=== PATIENT | male | born 1980 | race Two or more races ===

== ENCOUNTER 2016-10-27 22:31 | Emergency (ER) | payer OTHER ==
[~2016-10-27] VITALS: Ht 162.6 cm; Wt 104.3 kg
--- NOTE | ~2016-10-27 | CR141 ---
[facility] A Service [facility] RADIOLOGY TEXT RESULTS PATIENT: PRIYA CHINCHILLA LOCATION: [facility] : [birth year] UNIT #: [id number] AGE: [address]: Prerna Stevenson APRN SEX: M ORDER DR: [id number] [address] [id number] MR#: [id number] #: [id number] NAME: PRIYA CHINCHILLA : 1980 SEX: M STUDY DATE/TIME: 10/28/2016 2:32 UNIT: G[facility] ROOM: STUDY DESCRIPTION: CR Hand Min 3 Views Lt Attending Physician: Prerna Stevenson A.P.R.N. Ordering Physician: Prerna Stevenson A.P.R.N. MEDICAL IMAGING REPORT This report is preliminary unless electronic signature is present EXAM Left hand series INDICATIONS Left hand pain and swelling after an injury 5 days ago. TECHNIQUE 3 views left hand. COMPARISON None. FINDINGS No acute bony injury. There is an approximately 3 mm thin radiodensity projecting in the soft tissues along the palmar aspect of the hand between the second and third metacarpal bones. IMPRESSION Thin 3 mm radiodensity in the soft tissues along the palmar aspect of the hand between the second and third metacarpal bones, could represent a small glass fragment. Dictated by... Keo Bullock M.D. THIS IS AN ELECTRONICALLY VERIFIED REPORT Keo Bullock M.D. at 10/28/2016 10:23 PM EED/pcl TD: 10/28/2016 09:21 JOB #: [id number] [facility] A Service of [facility] RADIOLOGY TEXT RESULTS PATIENT: PRIYA CHINCHILLA LOCATION: [facility] : 80 UNIT #: [id number] AGE: [address]: Jantzen,Prerna L RECEIVING TELLER SEX: M ORDER DR: MEDICAL IMAGING REPORT Page 1 of 1 COPY
[~2016-10-27 22:31] MED LIST: ALAVERT10 MG PO; IBUPROFEN PO; PEN-VEE K PO; VICODIN 5/500 T1 TAB PO; VICODIN PO; ZITHROMAX PO
== END 2016-10-28 03:25 | disposition home or self-care (01) ==
LOC: CED 22:31 → CFTX 22:31 → CED 23:59
DX: S61.422A Laceration with foreign body of left hand, initial encounter (principal); F17.200 Nicotine dependence, unspecified, uncomplicated; W22.8XXA Striking against or struck by other objects, initial encounter
CPT/HCPCS: 73130; 99283